=== PATIENT | female | born 1990 | race Two or more races ===

== ENCOUNTER 2021-01-29 23:52 | Emergency (ER) | payer MEDICAID, OTHER ==
[~2021-01-29] VITALS: Ht 160 cm; Wt 75.7 kg
[2021-01-30 01:51] LABS: Basophils # (auto) 0.1 10 ^3/uL (0-0.2); Basophils % (auto) 0.6 % (0.0-2.0); Eosinophils # (auto) 0.1 10 ^3/uL (0-0.8); Eosinophils % (auto) 0.7 % (0.0-7.0); Hematocrit 45.3 % (36.0-46.0); Hemoglobin 16.2 g/dL (12.2-16.2); Lymphocytes # (auto) 1.9 10 ^3/uL (0.4-5.4); Mean Corpuscular Hgb Conc. 35.7 g/dL (32.0-36.0); Mean Corpuscular Volume 92.4 fL (80.0-100.0); Monocytes # (auto) 0.5 10 ^3/uL (0-1.3); Monocytes % (auto) 5.1 % (0.0-12.0); Neutrophils % (auto) 73.6 % (37.0-80.0); Nucleated Red Blood Cells % 0.1 %; White Blood Cell 9.5 10^3/uL (4.4-10.8)
[2021-01-30 02:04] LABS: INR 0.99 (0.9-1.15); Partial Thromboplastin Time 27.8 sec (23.0-31.2)
[2021-01-30 02:16] LABS: Albumin 4.2 g/dL (3.4-5.0); BUN/Creatinine Ratio 6.2; Calcium 8.7 mg/dL (8.5-10.1)
[2021-01-30 02:18] LABS: Bilirubin, Total 0.4 mg/dL (0.2-1.0); Total Protein 8.2 g/dL (6.4-8.2)
[2021-01-30] MEDS ORDERED: IOHEXOL 300 MG/ML 100ML BOTTLE IJ ONE (03:15)
[2021-01-30] MEDS ORDERED: FAMOTIDINE (10MG/ML) 2ML VL IV ONE (04:30)
[2021-01-30] MEDS ORDERED: ONDANSETRON HCL 4 MG/2 ML VIAL IV ONE (04:30)
[2021-01-30] MEDS ORDERED: SODIUM CHLORIDE 0.9% 1,000 ML IV ONE (04:30)
[2021-01-30 06:00] VITALS: BP 133/87
[2021-01-30 06:07] LABS: Urine Bacteria FEW /hpf (None Seen); Urine Blood Negative /uL (Negative); Urine Specific Gravity 1.018 (1.001-1.035); Urine WBC 12 /hpf (0 - 5)
== END 2021-01-30 07:03 | disposition home or self-care (01) ==
LOC: ER 23:52
DX: K92.2 Gastrointestinal hemorrhage, unspecified (principal); F12.10 Cannabis abuse, uncomplicated; J45.909 Unspecified asthma, uncomplicated; Z32.02 Encounter for pregnancy test, result negative
CPT/HCPCS: 36415; 74177; 80053; 81001; 81025; 83690; 85025; 85610; 85730; 96361; 96374; 96375; 99285; J2405; J3490; J7030; Q9967

== ENCOUNTER 2024-12-16 19:36 | Inpatient (IN) | payer BC, MEDICAID ==
[~2024-12-16] VITALS: Ht 160 cm; Wt 77.9 kg
[2024-12-16] MEDS: ACETAMINOPHEN 500 MG TAB or CAP PO ONE (20:22)
[2024-12-16] MEDS: ONDANSETRON ODT 4 MG TAB PO ONE (20:22)
[2024-12-16] MEDS: hydrALAZINE HCL 10 MG TAB PO ONE (20:23)
[2024-12-16 20:28] VITALS: PULSE 75; RESP 14; O2SAT 98
--- NOTE | 2024-12-16 20:33 | DVH ---
CHEST RADIOGRAPH Indication: hi bp Technique: Single frontal view of the chest was obtained COMPARISON: None FINDINGS: Lines and Tubes: None Lungs: Clear Pleura: No effusion. No pneumothorax. Cardiomediastinal contours: Unremarkable IMPRESSION: No abnormality.
[2024-12-16 20:37] LABS: Basophils # (auto) 0 10 ^3/uL (0-0.2); Basophils % (auto) 0.6 % (0.0-2.0); Eosinophils # (auto) 0.1 10 ^3/uL (0-0.8); Eosinophils % (auto) 1.9 % (0.0-7.0); Hematocrit 40.9 % (36.0-46.0); Hemoglobin 14.1 g/dL (12.2-16.2); Lymphocytes # (auto) 1.5 10 ^3/uL (0.4-5.4); Lymphocytes % (auto) 19.1 % (10.0-50.0); Mean Corpuscular Hemoglobin 29.9 pg (28.0-32.0); Mean Corpuscular Hgb Conc. 34.6 g/dL (32.0-36.0); Mean Corpuscular Volume 86.4 fL (80.0-100.0); Monocytes # (auto) 0.4 10 ^3/uL (0-1.3); Monocytes % (auto) 4.8 % (0.0-12.0); Neutrophils # (auto) 5.7 10 ^3/uL (1.6-8.6); Neutrophils % (auto) 73.6 % (37.0-80.0); Nucleated Red Blood Cells % 0.1 %; Platelet Count (auto) 278 10^3/uL (140-450); Red Blood Cells 4.73 10^6/uL (4.0-5.20); Red Cell Distribution Width 13.1 % (11.8-14.3); White Blood Cell 7.8 10^3/uL (4.4-10.8)
--- NOTE | 2024-12-16 20:37 | ED.PDOC ---
HPI (NEURO) HPI Comments 34y F who presents to the ED for chief complaint of headache.Pt states he has been having headache and forehead numbness for the past hour. Pt states the pain is located across the R side of her forehead radiating down to the R side of her face. Pt states her mid forehead feels numb with associated bilateral eye throbbing pain and noted tearing. Pt rates the pain 8/10, with no associated exacerbating or relieving factors. Pt has noted history of prior severe headache with initial CT finding of possible aneurysm which was later ruled out with brain MRI. She was told she may have a pinched nerve in her brain which could have been the cause of her pain. Pt states surgery was recommended but pt refused. Pt otherwise has noted BP of 155/102 but otherwise has noted temp of 98.7 F, heart rate 88, rr 18 and 02 sat of 97% on room air. Pt otherwise denies any other symptoms at this time. 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 Family History Family History: Reviewed,noncontributory to illness Social History Smoker: Non-Smoker Alcohol: Heavy Drugs: Marijuana Lives In: Home Constitutional: denies: chills, diaphoresis, fatigue, fever, malaise, sweats, weakness, others EENTM: denies: blurred vision, double vision, ear bleeding, ear discharge, ear drainage, ear pain, ear ringing, eye pain, eye redness, hearing loss, mouth pain, mouth swelling, nasal discharge, nose bleeding, nose congestion, nose pain, photophobia, tearing, throat pain, throat swelling, voice changes, others Respiratory: denies: cough, hemoptysis, orthopnea, SOB at rest, shortness of b reath, SOB with excertion, stridor, wheezing, others Cardiovascular: denies: chest pain, dizzy spells, diaphoresis, Dyspnea on exertion, edema, irregular heart beat, left arm pain, lightheadedness, palpitations, PND, syncope, others Gastrointestinal: denies: abdomen distended, abdominal pain, blood streaked bowels, constipated, diarrhea, dysphagia, difficulty swallowing, hematemesis, melena, nausea, poor appetite, poor fluid intake, rectal bleeding, rectal pain, vomiting, others Genitourinary: denies: abnormal vagina bleeding, burning, dyspareunia, dysuria, flank pain, frequency, hematuria, incontinence, pain, , vagina discharge, urgency, others Neurological: reports: headache; denies: dizziness, fainting, left sided numbness, left sided weakness, numbness, paresthesia, pre-existing deficit, right sided numbness, right sided weakness, seizure, speech problems, tingling, tremors, weakness, others Musculoskeletal: denies: back pain, gout, joint pain, joint swelling, muscle pain, muscle stiffness, neck pain, others Integumetry: denies: bruises, change in color, change in hair/nails, dryness, laceration, lesions, lumps, rash, wounds, others Allergic/Immunocompromised: denies: Difficulty Healing, Frequent Infections, Hives, Itching, others Hematologic/Lymphatic: denies: anemia, blood clots, easy bleeding, easy brui sing, swollen glands, others Endocrine: denies: excessive hunger, excessive sweating, excessive thirst, ex cessive urination, flushing, intolerance to cold, intolerance to heat, unexplained weight gain, unexplained weight loss, others Psychiatric: denies: anxiety, bipolar disorder, depression, hopeless, panic disorder, schizophrenia, sleepless, suicidal, others All Other Systems: Reviewed and Negative Physical Exam General Appearance: Mild Distress HEENT: PERRL/EOMI Neck: Full Range of Motion, Non-Tender, Normal Inspection, Supple Respiratory: Lungs Clear, No Accessory Muscle Use, No Respiratory Distress, Normal Breath Sounds Cardiovascular: No Edema, No JVD, Regular Rate/Rhythm Breast Exam: Deferred Gastrointestinal: Non Tender, Soft Genitalia: Deferred Pelvic: Deferred Rectal: Deferred Extremities: Normal inspection, Normal range of motion, Non-tender, No pedal edema Neurologic: Alert (Oriented x4), 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 Was a procedure done? Was a procedure done?: No Differential Diagnosis (SZ) Seizure: CVA/TIA CVA: Electrolyte Imbalance, Encephalopathy, Hypoglycemia, Hypoxemia Headache: Migraine, Epidural Hemorrhage, Intracerebral Hemorrhage, Subarachnoid Hemorrhage, Subdural Hemorrhage, Mass Lesion, Sinusitis, Other (HTN urgency/e mergency) X-Ray, Labs, Meds, VS Vital Signs Date Time Temp Pulse Resp B/P (MAP) Pulse Ox O2 Delivery O2 Flow Rate FiO2 12/16/24 22:00 66 15 141/97 (112) 97 12/16/24 20:28 98.3 75 75 152/106 (121) 98 98.3 12/16/24 20:28 75 14 98 Room Air* 0 21 12/16/24 20:24 80 12/16/24 20:23 152/106 12/16/24 20:22 98.3 12/16/24 19:50 98.7 88 18 155/102 (119) 97 98.7 Lab Test 12/16/24 21:24 12/16/24 20:40 12/16/24 20:24 Range/Units Troponin I High Sensitivity < 3 L < 3 L </=34 ng/L Urine Color Colorless Yellow Urine Clarity Clear Clear Urine pH 6.0 5.0-9.0 Urine Specific [place] 1.005 1.001-1.035 Urine Protein Negative Negative Urine Ketones Negative Negative Urine Blood Negative Negative /uL Urine Nitrite Negative Negative Urine Bilirubin Negative Negative Urine Urobilinogen Normal Negative mg/dL Urine Leukocyte Esterase Negative Negative /uL Urine RBC 1 0 - 4 /hpf Urine Microscopic WBC < 1 0-5 /HPF Urine Squamous Epithelial Cells Few <5 /hpf Urine Bacteria None seen None Seen /hpf Urine Glucose Normal Normal mg/dL Urine Test Negative Negative White Blood Count 7.8 4.4-10.8 10^3/uL Red Blood Count 4.73 4.0-5.20 10^6/uL Hemoglobin 14.1 12.2-16.2 g/dL Hematocrit 40.9 36.0-46.0 % Mean Corpuscular Volume 86.4 80.0-100.0 fL Mean Corpuscular Hemoglobin 29.9 28.0-32.0 pg Mean Corpuscular Hemoglobin Concent 34.6 32.0-36.0 g/dL Red Cell Distribution Width 13.1 11.8-14.3 % Platelet Count 278 140-450 10^3/uL Mean Platelet Volume 8.7 6.9-10.8 fL Neutrophils (%) (Auto) 73.6 37.0-80.0 % Lymphocytes (%) (Auto) 19.1 10.0-50.0 % Monocytes (%) (Auto) 4.8 0.0-12.0 % Eosinophils (%) (Auto) 1.9 0.0-7.0 % Basophils (%) (Auto) 0.6 0.0-2.0 % Neutrophils # (Auto) 5.7 1.6-8.6 10 ^3/uL Lymphocytes # (Auto) 1.5 0.4-5.4 10 ^3/uL Monocytes # (Auto) 0.4 0-1.3 10 ^3/uL Eosinophils # (Auto) 0.1 0-0.8 10 ^3/uL Basophils # (Auto) 0 0-0.2 10 ^3/uL Nucleated Red Blood Cells 0.1 % Sodium Level 139 136-145 mmol/L Potassium Level 3.6 3.5-5.1 mmol/L Chloride Level 104 98-107 mmol/L Carbon Dioxide Level 25 20-31 mmol/L Anion Gap 10 5-15 Blood Urea Nitrogen 9 9-23 mg/dL Creatinine 0.84 0.550-1.02 mg/dL Glomerular Filtration Rate Calc 95 >90 mL/min BUN/Creatinine Ratio 10.7 10.0-20.0 Serum Glucose 109 H 74-106 mg/dL Calcium Level 9.1 8.7-10.4 mg/dL B-Type Natriuretic Peptide 4.74 0-100 pg/mL Current Medications Medications (Trade) Dose Ordered Sig/[place] Route Start Time Stop Time Status Last Admin Acetaminophen (Tylenol Tablet Or Capsule) 1,000 mg ONCE ONCE PO 12/16/24 20:15 12/16/24 20:16 DC 12/16/24 20:22 Ondansetron HCl (Zofran Po) 4 mg ONCE ONCE PO 12/16/24 20:15 12/16/24 20:16 DC 12/16/24 20:22 Hydralazine HCl (Apresoline Tablet) 10 mg ONCE ONCE PO 12/16/24 20:15 12/16/24 20:16 DC 12/16/24 20:23 [place] [id number] Ph: [phone] DIAGNOSTIC IMAGING Diagnostic Imaging Report : [id number] Signed PATIENT: PHANI NATION ACCT: [id number] UNIT: [id number] : 1990 LOC: ER ROOM / BED: / AGE / SEX: 34 / F ADM STATUS: REG ER SERVICE 00 ORDERING PHYSICIAN: KENDALL ALBERTO MD PROCEDURE(s): HWOCT - HEAD WITHOUT CONTRAST REASON: mid forehead numbness, headache, high bp ORDER NUMBER(s): [id number], ACCESSION NUMBER(s): [id number] CT HEAD WITHOUT CONTRAST INDICATION: mid forehead numbness, headache, high bp COMPARISON: None TECHNIQUE: CT of the head without intravenous contrast. RADIATION DOSE: CTDIvol: 51.74 mGy, DLP: 829.58 mGy*cm FINDINGS: There is no evidence of intracranial hemorrhage, infarct, extra-axial collection, mass effect, midline shift, herniation or hydrocephalus. The ventricles, sulci and cisterns are normal. The salas-white differentiation is normal. Visualized paranasal sinuses and mastoid air cells are unremarkable. Soft tissues and osseous structures are unremarkable. IMPRESSION: No intracranial abnormality identified. ATED BY: DONALD GOODMAN MD DICTATED DATE/TIME: 12/16/242039 SIGNED BY: DONALD GOODMAN MD SIGNED DATE/TIME: 12/16/242039 CC: [place] [id number] Ph: [phone] DIAGNOSTIC IMAGING Diagnostic Imaging Report : [id number] Signed PATIENT: PHANI NATION ACCT: [id number] UNIT: [id number] : 1990 LOC: ER ROOM / BED: / AGE / SEX: 34 / F ADM STATUS: REG ER SERVICE 00 ORDERING PHYSICIAN: KENDALL ALBERTO MD PROCEDURE(s): CXRP - CHEST PORTABLE REASON: hi bp ORDER NUMBER(s): [id number], ACCESSION NUMBER(s): [id number] CHEST RADIOGRAPH Indication: hi bp Technique: Single frontal view of the chest was obtained COMPARISON: None FINDINGS: Lines and Tubes: None Lungs: Clear Pleura: No effusion. No pneumothorax. Cardiomediastinal contours: Unremarkable IMPRESSION: No abnormality. ATED BY: DONALD GOODMAN MD DICTATED DATE/TIME: 12/16/242030 SIGNED BY: DONALD GOODMAN MD SIGNED DATE/TIME: 12/16/242030 CC: X-Ray, Labs, Meds, VS Comment 34-year-old female with history of asthma and previous finding of a brain abnormality on imaging complaining of headache, forehead numbness and found to have elevated blood pressure Vitals remarkable for blood pressure 155/102 Exam remarkable for localized diminished light touch sensation in the mid forehead area Rhythm strip independently interpreted by me: Sinus rhythm, rate 80, no ectopy. CT head unremarkable CBC, metabolic panel, BNP and troponin unremarkable Patient treated with the following any ED: Tylenol 1 g p.o., hydralazine 10 mg p.o., Zofran ODT 4 mg p.o. On re-evaluation, patient states symptoms have somewhat improved. BP is 141/97, and other vitals are stable. She is still reporting diminished light touch sensation in the mid forehead area. Plan is to admit the patient for blood pressure control, brain MRI and Neurology evaluation. Time of 1ST Reevaluation: 21:05 Reevaluation 1ST: Unchanged Time of 2ND Reevaluation: 22:21 Reevaluation 2ND: Improved Patient Education/Counseling: Diagnosis, Treatment Family Education/Counseling: Diagnosis, Treatment Departure 1 Departure Time of Disposition: 22:21 Impression: Primary Impression: Hypertensive emergency Additional Impressions: Vascular headache Facial numbness Disposition: ADMITTED INPATIENT Admit to: Tele Condition: Guarded e-Prescriptions No Active Prescriptions or Reported Meds Critical Care Note Critical Care Time?: No Stability Stability form required: No Heart Score Heart Score: Heart Score Response (Comments) Value History N/A 0 EKG N/A 0 Age N/A 0 Risk Factors N/A 0 Troponin N/A 0 Total 0 I personally scribed for KENDALL ALBERTO MD ([email or web address]) on 12/16/24 at 20:37. Electronically submitted by [facility] Bourgeois ([facility] I personally scribed for KENDALL ALBERTO MD ([email or web address]) on 12/16/24 at 21:19. Electronically submitted by Kiki Bourgeois ([facility]). KENDALL ALBERTO MD Dec 16, 2024 20:37
--- NOTE | 2024-12-16 20:42 | DVH ---
CT HEAD WITHOUT CONTRAST INDICATION: mid forehead numbness, headache, high bp COMPARISON: None TECHNIQUE: CT of the head without intravenous contrast. RADIATION DOSE: CTDIvol: 51.74 mGy, DLP: 829.58 mGy*cm FINDINGS: There is no evidence of intracranial hemorrhage, infarct, extra-axial collection, mass effect, midlin e shift, herniation or hydrocephalus. The ventricles, sulci and cisterns are normal. The salas-white d ifferentiation is normal. Visualized paranasal sinuses and mastoid air cells are unremarkable. Soft t issues and osseous structures are unremarkable. IMPRESSION: No intracranial abnormality identified.
[2024-12-16 20:46] LABS: Anion Gap 10 (5-15); Carbon Dioxide 25 mmol/L (20-31); Chloride 104 mmol/L (98-107); Potassium 3.6 mmol/L (3.5-5.1); Sodium 139 mmol/L (136-145)
[2024-12-16 20:47] LABS: Calcium 9.1 mg/dL (8.7-10.4)
[2024-12-16 20:52] LABS: BUN/Creatinine Ratio 10.7 (10.0-20.0)
[2024-12-16 20:55] LABS: Blood Urea Nitrogen 9 mg/dL (9-23); Glucose 109 mg/dL (74-106)
[2024-12-16 21:00] LABS: Urine Bacteria None Seen /hpf (None Seen)
[2024-12-16 21:07] LABS: Urine Blood Negative /uL (Negative); Urine Clarity Clear (Clear); Urine Color Colorless (Yellow); Urine Protein, UAD Negative (Negative); Urine Specific Gravity 1.005 (1.001-1.035); Urine Squamous Epithelial Cell FEW /hpf (<5); Urine Urobilinogen Normal (Negative); Urine WBC < 1 /HPF (0-5)
[2024-12-16] MEDS ORDERED: LORazepam 0.5 MG TAB PO PRN (22:15)
[2024-12-16] MEDS ORDERED: MAALOX PLUS or MAALOX 30 ML PO PRN (22:15)
[2024-12-16] MEDS ORDERED: HYDROcodone-ACET 5/325MG TAB PO PRN (22:15)
[2024-12-16] MEDS ORDERED: ONDANSETRON HCL 4 MG/2 ML VIAL IV PRN (22:15)
[2024-12-16] MEDS ORDERED: DOCUSATE SOD 100 MG CAP PO PRN (22:15)
[2024-12-16] MEDS ORDERED: hydrALAZINE HCL 10 MG TAB PO PRN (22:15)
[2024-12-16] MEDS ORDERED: TEMAZEPAM 15 MG CAP PO PRN (22:15)
--- NOTE | 2024-12-16 22:51 | DVHHP2 ---
History of Present Illness Reason for Visit: headaches htn History of Present Illness 34-year-old female past medical history of asthma comes into the ED with a complaint of the headache patient has been having headache with facial pain and numbness for the past hour states the pain goes across the right side of the forehead and radiates down to the right side of the face patient on initial evaluation had blood pressure as high as 155/1 0s afebrile with no acute signs of infection or patient on a continued evaluation vitals appeared to be within normal limits patient was told that she has a pinched nerve in her brain and was initially transferred to [place] sometime ago where surgery was recommended but patient did refused at that time to have surgical evaluation remaining vitals remained stable patient was suggested for admission for further evaluation Cardiovascular: HTN Review of Systems Review of Systems Constitutional: denies: chills, diaphoresis, fatigue, fever, malaise, sweats, weakness, others EENTM: denies: blurred vision, double vision, ear bleeding, ear discharge, ear drainage, ear pain, ear ringing, eye pain, eye redness, hearing loss, mouth pain, mouth swelling, nasal discharge, nose bleeding, nose congestion, nose pain, photophobia, tearing, throat pain, throat swelling, voice changes, others Respiratory: denies: cough, hemoptysis, orthopnea, SOB at rest, shortness of breath, SOB with excertion, stridor, wheezing, others Cardiovascular: denies: chest pain, dizzy spells, diaphoresis, Dyspnea on exertion, edema, irregular heart beat, left arm pain, lightheadedness, palpitations, PND, syncope, others Gastrointestinal: denies: abdomen distended, abdominal pain, blood streaked bowels, constipated, diarrhea, dysphagia, difficulty swallowing, hematemesis, melena, nausea, poor appetite, poor fluid intake, rectal bleeding, rectal pain, vomiting, others Genitourinary: denies: abnormal vagina bleeding, burning, dyspareunia, dysuria, flank pain, frequency, hematuria, incontinence, pain, , vagina discharge, urgency, others Neurological: reports: headache; denies: dizziness, fainting, left sided numbness, left sided weakness, numbness, paresthesia, pre-existing deficit, right sided numbness, right sided weakness, seizure, speech problems, tingling, tremors, weakness, others Musculoskeletal: denies: back pain, gout, joint pain, joint swelling, muscle pain, muscle stiffness, neck pain, others Integumetry: denies: bruises, change in color, change in hair/nails, dryness, laceration, lesions, lumps, rash, wounds, others Allergic/Immunocompromised: denies: Difficulty Healing, Frequent Infections, Hives, Itching, others Hematologic/Lymphatic: denies: anemia, blood clots, easy bleeding, easy bruising, swollen glands, others Endocrine: denies: excessive hunger, excessive sweating, excessive thirst, excessive urination, flushing, intolerance to cold, intolerance to heat, unexplained weight gain, unexplained weight loss, others Psychiatric: denies: anxiety, bipolar disorder, depression, hopeless, panic disorder, schizophrenia, sleepless, suicidal, others All Other Systems: Reviewed and Negative Allergies: Coded Allergies: NO KNOWN ALLERGIES (Unverified , 12/16/24) Exam Vital Signs Vital Signs Date Time Temp Pulse Resp B/P (MAP) Pulse Ox O2 Delivery O2 Flow Rate FiO2 12/16/24 20:28 98.3 75 75 152/106 (121) 98 98.3 12/16/24 20:28 Room Air* 0 21 General Appearance: Alert, Oriented X3 HEENT: Atraumatic, EOMI Respiratory: Clear to auscultation, Normal air movement Cardiovascular: Regular rate, Normal S1, Normal S2 Abdominal: Normal bowel sounds, Soft Extremities: No clubbing, No cyanosis Skin: No rashes, No breakdown Neuro: Normal speech Psych/Mental Status: Mood NL Labs/Xrays Labs Test 12/16/24 21:24 12/16/24 20:40 12/16/24 20:24 Range/Units Troponin I High Sensitivity < 3 L </=34 ng/L Urine Color Colorless Yellow Urine Clarity Clear Clear Urine pH 6.0 5.0-9.0 Urine Specific [place] 1.005 1.001-1.035 Urine Protein Negative Negative Urine Ketones Negative Negative Urine Blood Negative Negative /uL Urine Nitrite Negative Negative Urine Bilirubin Negative Negative Urine Urobilinogen Normal Negative mg/dL Urine Leukocyte Esterase Negative Negative /uL Urine RBC 1 0 - 4 /hpf Urine Microscopic WBC < 1 0-5 /HPF Urine Squamous Epithelial Cells Few <5 /hpf Urine Bacteria None seen None Seen /hpf Urine Glucose Normal Normal mg/dL Urine Test Negative Negative White Blood Count 7.8 4.4-10.8 10^3/uL Red Blood Count 4.73 4.0-5.20 10^6/uL Hemoglobin 14.1 12.2-16.2 g/dL Hematocrit 40.9 36.0-46.0 % Mean Corpuscular Volume 86.4 80.0-100.0 fL Mean Corpuscular Hemoglobin 29.9 28.0-32.0 pg Mean Corpuscular Hemoglobin Concent 34.6 32.0-36.0 g/dL Red Cell Distribution Width 13.1 11.8-14.3 % Platelet Count 278 140-450 10^3/uL Mean Platelet Volume 8.7 6.9-10.8 fL Neutrophils (%) (Auto) 73.6 37.0-80.0 % Lymphocytes (%) (Auto) 19.1 10.0-50.0 % Monocytes (%) (Auto) 4.8 0.0-12.0 % Eosinophils (%) (Auto) 1.9 0.0-7.0 % Basophils (%) (Auto) 0.6 0.0-2.0 % Neutrophils # (Auto) 5.7 1.6-8.6 10 ^3/uL Lymphocytes # (Auto) 1.5 0.4-5.4 10 ^3/uL Monocytes # (Auto) 0.4 0-1.3 10 ^3/uL Eosinophils # (Auto) 0.1 0-0.8 10 ^3/uL Basophils # (Auto) 0 0-0.2 10 ^3/uL Nucleated Red Blood Cells 0.1 % Sodium Level 139 136-145 mmol/L Potassium Level 3.6 3.5-5.1 mmol/L Chloride Level 104 98-107 mmol/L Carbon Dioxide Level 25 20-31 mmol/L Anion Gap 10 5-15 Blood Urea Nitrogen 9 9-23 mg/dL Creatinine 0.84 0.550-1.02 mg/dL Glomerular Filtration Rate Calc 95 >90 mL/min BUN/Creatinine Ratio 10.7 10.0-20.0 Serum Glucose 109 H 74-106 mg/dL Calcium Level 9.1 8.7-10.4 mg/dL B-Type Natriuretic Peptide 4.74 0-100 pg/mL Assessment/Plan Assessment/Plan admit to [facility] Hypertensive urgency With symptomatic headache P.r.n. medication for the management of blood pressure hydralazine 10 mg p.r.n. q.6 pressures greater than 150 systolic Patient with a history of nerve impingement in the brain Neuro evaluation possible MRI required for change in prognosis Lab evaluation appears unremarkable CT exam of the head appears unremarkable We will admit for further evaluation and management as per ED recommendation Plan discussed with: Patient My Orders Orders - NOLBERTO CLARK MD Procedure Category Date Status Time Admit ADMIT 12/16/24 Transmitted 22:13 Code Status CODE 12/16/24 Transmitted 22:13 Vital Signs JAX 12/16/24 In Process 22:13 Review Orders With JAX 12/16/24 In Process Adm.Md 22:13 Regular Diet DIET 12/17/24 Transmitted Breakfast Lorazepam Tablet PHA 12/16/24 In Process (Ativan Tablet) 22:15 Alum & Mag PHA 12/16/24 In Process Hydrox-Simethicone 22:15 Docusate Sodium PHA 12/16/24 In Process Capsule (Colace 22:15 Acetaminophen Tablet PHA 12/16/24 In Process (Tylenol Tablet) 22:15 Temazepam (Restoril) PHA 12/16/24 In Process 22:15 Notify Md Of Changes JAX 12/16/24 In Process From Base 22:13 Advance Directive JAX 12/16/24 In Process 22:13 Patient Condition ORDERS 12/16/24 Transmitted 22:13 Allergies JAX 12/16/24 In Process 22:13 Hydrocodone-Acet PHA 12/16/24 In Process 5/325mg Tab ([place] 22:15 Ondansetron Hcl PHA 12/16/24 In Process (Zofran) 22:15 Notify Md Of Changes JAX 12/16/24 In Process From Base 22:13 * Neurology Consult CONS 12/16/24 Transmitted 22:13 Hydralazine Hcl PHA 12/16/24 In Process Tablet (Apresoline 22:15 Date of Service: Dec 16, 2024 Billing Provider: NOLBERTO CLARK MD Common Visit Codes: [id number] INP/OBS CARE (HIGH) NOLBERTO CLARK MD Dec 16, 2024 22:51
[2024-12-17] VITALS (8 sets, daily range): BP systolic 126–143; BP diastolic 79–98; PULSE 63–73; RESP 16–98; TEMP 36.7; O2SAT 97–99
[2024-12-17] MEDS: ACETAMINOPHEN 325 MG TAB PO PRN (01:55)
--- NOTE | 2024-12-17 14:42 | DVH ---
EXAMINATION: MRI BRAIN HEAD WO CONTRAST INDICATION: Trigemnal Neuralgia COMPARISON: CT head 12/16/2024 TECHNIQUE: Multiplanar, multisequence magnetic resonance imaging of the brain was performed without t he use of intravenous contrast. FINDINGS: There is no restricted diffusion. The salas and white matter signal is appropriate. There is no eviden ce of hemorrhage, mass, mass effect or midline shift. There is no hydrocephalus or extra-axial fluid collection. The visualized intracranial vasculature demonstrates appropriate flow-voids. There is no gross evidence of an IAC or CP angle lesion. The sagittal midline structures appear unremarkable. The craniocervical junction is within normal limits. The calvarium demonstrates normal marrow signal. Th ere is mild mucosal thickening in the maxillary sinuses. There is a retention cysts in the left maxil rory sinus. Mastoid air cells are clear. IMPRESSION: 1. There is no acute intracranial process. HS:Y
--- NOTE | 2024-12-17 15:25 | DVH ---
PROCEDURE: MRI MRI FACE W OUT CONTRAST INDICATION: Trigemnal Neuralgia Exam Date: 12/17/2024 01:55 PM COMPARISON: None TECHNIQUE: MRI neck without and with intravenous contrast. FINDINGS: There is no evidence of neck mass lesion, pathologically enlarged lymph nodes, or fluid collection. The fat planes of the neck appear intact. The visualized airway and larynx are unremarkable. The sk ull base and infratemporal fossae are unremarkable. The paranasal sinuses and mastoid air cells are unremarkable. The visualized portions of the brain are unremarkable. IMPRESSION: No evidence of neck mass, pathologically enlarged lymph nodes or fluid collection.
[2024-12-17] MEDS: LOSARTAN POTASSIUM 25 MG TAB PO ONE (15:26)
[2024-12-17] MEDS ORDERED: LOSA-534 PO (16:42)
--- NOTE | 2024-12-17 16:45 | DVHDS2 ---
Discharge Summary Date of Admission Dec 16, 2024 at 22:13 Date of Discharge: Dec 17, 2024 Admitting Diagnosis Uncontrolled HTN Labs/Diagnostic Data: Laboratory Results Test 12/17/24 05:16 12/16/24 21:24 12/16/24 20:40 12/16/24 20:24 POC Glucose 125 mg/dl (70-106) Troponin I High Sensitivity < 3 ng/L (</=34) Urine Color Colorless (Yellow) Urine Clarity Clear (Clear) Urine pH 6.0 (5.0-9.0) Urine Specific [place] 1.005 (1.001-1.035) Urine Protein Negative (Negative) Urine Ketones Negative (Negative) Urine Blood Negative /uL (Negative) Urine Nitrite Negative (Negative) Urine Bilirubin Negative (Negative) Urine Urobilinogen Normal mg/dL (Negative) Urine Leukocyte Esterase Negative /uL (Negative) Urine RBC 1 /hpf (0 - 4) Urine Microscopic WBC < 1 /HPF (0-5) Urine Squamous Epithelial Cells Few /hpf (<5) Urine Bacteria None seen /hpf (None Seen) Urine Glucose Normal mg/dL (Normal) Urine Test Negative (Negative) White Blood Count 7.8 10^3/uL (4.4-10.8) Red Blood Count 4.73 10^6/uL (4.0-5.20) Hemoglobin 14.1 g/dL (12.2-16.2) Hematocrit 40.9 % (36.0-46.0) Mean Corpuscular Volume 86.4 fL (80.0-100.0) Mean Corpuscular Hemoglobin 29.9 pg (28.0-32.0) Mean Corpuscular Hemoglobin Concent 34.6 g/dL (32.0-36.0) Red Cell Distribution Width 13.1 % (11.8-14.3) Platelet Count 278 10^3/uL (140-450) Mean Platelet Volume 8.7 fL (6.9-10.8) Neutrophils (%) (Auto) 73.6 % (37.0-80.0) Lymphocytes (%) (Auto) 19.1 % (10.0-50.0) Monocytes (%) (Auto) 4.8 % (0.0-12.0) Eosinophils (%) (Auto) 1.9 % (0.0-7.0) Basophils (%) (Auto) 0.6 % (0.0-2.0) Neutrophils # (Auto) 5.7 10 ^3/uL (1.6-8.6) Lymphocytes # (Auto) 1.5 10 ^3/uL (0.4-5.4) Monocytes # (Auto) 0.4 10 ^3/uL (0-1.3) Eosinophils # (Auto) 0.1 10 ^3/uL (0-0.8) Basophils # (Auto) 0 10 ^3/uL (0-0.2) Nucleated Red Blood Cells 0.1 % Sodium Level 139 mmol/L (136-145) Potassium Level 3.6 mmol/L (3.5-5.1) Chloride Level 104 mmol/L (98-107) Carbon Dioxide Level 25 mmol/L (20-31) Anion Gap 10 (5-15) Blood Urea Nitrogen 9 mg/dL (9-23) Creatinine 0.84 mg/dL (0.550-1.02) Glomerular Filtration Rate Calc 95 mL/min (>90) BUN/Creatinine Ratio 10.7 (10.0-20.0) Serum Glucose 109 mg/dL (74-106) Calcium Level 9.1 mg/dL (8.7-10.4) B-Type Natriuretic Peptide 4.74 pg/mL (0-100) Other Laboratory Tests 12/16/24 20:24 Brief Hx & Hospital Course: 34 year-old F who presented with headaches and "funny feeling" reports she had Trigeminal Neuralgia in the past. MRI was done which was negative. New onset HTN, will start Losartan. See me in clinic on Tuesday afternoon. Operations or Procedures EXAMINATION: MRI BRAIN HEAD WO CONTRAST INDICATION: Trigemnal Neuralgia COMPARISON: CT head 12/16/2024 TECHNIQUE: Multiplanar, multisequence magnetic resonance imaging of the brain was performed without the use of intravenous contrast. FINDINGS: There is no restricted diffusion. The salas and white matter signal is appropriate. There is no evidence of hemorrhage, mass, mass effect or midline shift. There is no hydrocephalus or extra-axial fluid collection. The visualized intracranial vasculature demonstrates appropriate flow-voids. There is no gross evidence of an IAC or CP angle lesion. The sagittal midline structures appear unremarkable. The craniocervical junction is within normal limits. The calvarium demonstrates normal marrow signal. There is mild mucosal thickening in the maxillary sinuses. There is a retention cysts in the left maxillary sinus. Mastoid air cells are clear. IMPRESSION: 1. There is no acute intracranial process. Condition at Discharge: Stable Final Diagnosis/Problems List Uncontrolled HTN Discharge Disposition: Home Discharge Instruct/Medications Diet: Regular Activity: Light activity Follow Up/Referral: Dr. Castellano Medications: Losartan Discharge Statement: "Patient was advised to return to the ER or call 911 if any headaches, dizziness, shortness of breath, chest pain, abdominal pain, bleeding, fevers, or worsening of medical condition. Patient was counseled about treatment plan, medications, possible side effects, patientverbalized understanding. All questions were answered to the best of my ability. This discharge took greater then 30 minutes in planning, reviewing documentation, counseling the patient, and discussing with other team members." ASSESSMENT ASSESSMENT Assessment Date of Service: Dec 17, 2024 Billing Provider: QUINTON CASTELLANO MD Common Visit Codes: 42396-PLC/OBS DISCH DAY >30min QUINTON CASTELLANO MD Dec 17, 2024 16:45
[2024-12-17 17:22] LABS: Urine Bacteria None Seen /hpf (None Seen)
[2024-12-17 17:28] LABS: Urine Blood Negative /uL (Negative); Urine Clarity Turbid (Clear); Urine Color Light-Yellow (Yellow); Urine Protein, UAD Negative (Negative); Urine Specific Gravity 1.018 (1.001-1.035); Urine Squamous Epithelial Cell MOD /hpf (<5); Urine Urobilinogen Normal (Negative); Urine WBC 2 /HPF (0-5); Urine pH 6.5 (5.0-9.0)
[2024-12-17 17:31] LABS: INR 0.96 (0.9-1.15); Partial Thromboplastin Time 29.3 SEC (24.5-34.5); Prothrombin Time 10.2 sec (9.3-11.8)
[2024-12-17 17:34] LABS: Alanine Aminotransferase 33 U/L (7-40); Alkaline Phosphatase 70 U/L (46-116); Anion Gap 9 (5-15); Aspartate Aminotransferase 37 U/L (13-40); BUN/Creatinine Ratio 8.7 (10.0-20.0); Bilirubin, Total 0.3 mg/dL (0.2-1.0); Calcium 9.5 mg/dL (8.7-10.4); Carbon Dioxide 23 mmol/L (20-31); Chloride 106 mmol/L (98-107); Cholesterol 186 mg/dL (< 200); HDL Cholesterol 40 mg/dL (40-59); Potassium 3.6 mmol/L (3.5-5.1); Sodium 138 mmol/L (136-145); Total Protein 7.8 g/dL (5.7-8.2)
[2024-12-17 17:36] LABS: Albumin 4.9 g/dL (3.2-4.8); Blood Urea Nitrogen 8 mg/dL (9-23); Free T4 (Free Thyroxine) 1.15 ng/dL (0.89-1.76); Glucose 126 mg/dL (74-106); Triglycerides 420 mg/dL (< 150)
[2024-12-18] MEDS ORDERED: LOSARTAN POTASSIUM 50 MG TAB PO SCH (10:00)
[2024-12-19 12:12] LABS: Hepatitis B Core Total AB Negative (Negative)
[2024-12-19 12:33] LABS: Hepatitis A Total Antibody Positive (Negative); Hepatitis B Surface Antibody Negative (Negative); Hepatitis B Surface Antigen Negative (Negative)
[2024-12-19 12:34] LABS: Hepatitis C Antibody Negative (Negative)
== END 2024-12-17 18:50 | disposition home or self-care (01) | DRG 305 ==
LOC: EEVIPCON 19:36 → ER 19:36 → OVERFLOW 22:13 → WEST WING 12-17 01:01
PROVIDERS: ADMIT Internal Medicine; ATTEND Internal Medicine
DX: I16.1 Hypertensive emergency (principal); J45.909 Unspecified asthma, uncomplicated; I10 Essential (primary) hypertension; M79.2 Neuralgia and neuritis, unspecified; G44.1 Vascular headache, not elsewhere classified
CPT/HCPCS: 36415; 70450; 70540; 70551; 71045; 80048; 80053; 80061; 81001; 81025; 82306; 82607; 82962; 83036; 83880; 84439; 84443; 84484; 85025; 85610; 85730; 86704; 86706; 86708; 86803; 87340; G0378; Q0162

== ENCOUNTER 2025-02-09 04:50 | Emergency (ER) | payer BC, MEDICAID ==
[~2025-02-09] VITALS: Ht 160 cm; Wt 74.0 kg
[~2025-02-09 04:50] MED LIST: LOSA-534 PO
[2025-02-09] MEDS ORDERED: CLIN1CAP70 PO (05:05)
--- NOTE | 2025-02-09 05:07 | ED.PDOC ---
History of Present Illness HPI Comments 35 year old female presents to the ED for the c/c of Tooth pain w/ associated Right sided Facial Swelling. Pt states that her symptoms started 2x days ago, and have progressively worsened, leaving no alleviating factors. Pt denies any CRUZ, ABD pain, or any other associated symptoms, modifiers, recent injuries or sick contacts present at this time. Chief Complaint: Tooth Pain Time Seen by MD: 05:04 Primary Care Provider: MAE Reviewed Notes: Nurses Notes, Medications, Allergies Allergies: Coded Allergies: NO KNOWN ALLERGIES (Unverified , 12/16/24) Home Meds Active Scripts Clindamycin Hcl (Clindamycin Hcl) 300 Mg Cap, 1 CAP PO TID for 7 Days, #21 CAP Prov:MADDIE HILTON MD 02/09/25 Losartan Potassium (Losartan Potassium) 50 Mg Tab, 50 MG PO DAILY for 30 Days, #30 TAB Prov:QUINTON CASTELLANO MD 12/17/24 Information Source: Patient, Spouse Mode of Arrival: Ambulatory Severity: Moderate Timing: Days Duration: Intermittent, Days Prehospital treatment: None Past Medical History PAST MEDICAL HISTORY: Asthma Surgical History: Denies all surgeries 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 Family History Family History: Reviewed,noncontributory to illness Social History Smoker: Non-Smoker Alcohol: Heavy Drugs: Marijuana Lives In: Home Constitutional: denies: chills, diaphoresis, fatigue, fever, malaise, sweats, weakness, others EENTM: reports: mouth pain; denies: blurred vision, double vision, ear bleeding, ear discharge, ear drainage, ear pain, ear ringing, eye pain, eye redness, hearing loss, mouth swelling, nasal discharge, nose bleeding, nose congestion, nose pain, photophobia, tearing, throat pain, throat swelling, voice changes, others Respiratory: denies: cough, hemoptysis, orthopnea, SOB at rest, shortness of breath, SOB with excertion, stridor, wheezing, others Cardiovascular: denies: chest pain, dizzy spells, diaphoresis, Dyspnea on exertion, edema, irregular heart beat, left arm pain, lightheadedness, palpitations, PND, syncope, others Gastrointestinal: denies: abdomen distended, abdominal pain, blood streaked bowels, constipated, diarrhea, dysphagia, difficulty swallowing, hematemesis, melena, nausea, poor appetite, poor fluid intake, rectal bleeding, rectal pain, vomiting, others Genitourinary: denies: abnormal vagina bleeding, burning, dyspareunia, dysuria, flank pain, frequency, hematuria, incontinence, pain, , vagina discharge, urgency, others Neurological: denies: dizziness, fainting, headache, left sided numbness, left sided weakness, numbness, paresthesia, pre-existing deficit, right sided numbness, right sided weakness, seizure, speech problems, tingling, tremors, weakness, others Musculoskeletal: denies: back pain, gout, joint pain, joint swelling, muscle pain, muscle stiffness, neck pain, others Integumetry: denies: bruises, change in color, change in hair/nails, dryness, laceration, lesions, lumps, rash, wounds, others Allergic/Immunocompromised: denies: Difficulty Healing, Frequent Infections, Hives, Itching, others Hematologic/Lymphatic: denies: anemia, blood clots, easy bleeding, easy bruising, swollen glands, others Endocrine: denies: excessive hunger, excessive sweating, excessive thirst, excessive urination, flushing, intolerance to cold, intolerance to heat, unexplained weight gain, unexplained weight loss, others Psychiatric: denies: anxiety, bipolar disorder, depression, hopeless, panic disorder, schizophrenia, sleepless, suicidal, others All Other Systems: Reviewed and Negative Physical Exam General Appearance: Mild Distress, Normal, Obese HEENT: Head (Notable swelling to the Right cheek, with notebale surrouding erythema, TTP), Normal ENT Inspection, Pharynx Normal, TMs Normal Neck: Full Range of Motion, Non-Tender, Normal, Normal Inspection Respiratory: Chest Non-Tender, Lungs Clear, No Accessory Muscle Use, No Respiratory Distress, Normal Breath Sounds Cardiovascular: No Edema, No JVD, No Murmur, No Gallop, Normal Peripheral Pulses, Regular Rate/Rhythm Breast Exam: Deferred Gastrointestinal: Non Tender, No Pulsatile Mass, Normal Bowel Sounds, Soft Genitalia: Deferred Pelvic: Deferred Rectal: Deferred Extremities: No calf tenderness, Normal capillary refill, Normal inspection, Normal range of motion, Non-tender, No pedal edema Musculoskeletal : Apperance: Normal Neurologic: Alert, No Motor Deficits, Normal Affect, Normal Mood, No Sensory Deficits Cerebellar Function: Normal Reflexes: Normal Skin: Dry, Normal Color, Warm Lymphatic: No Adenopathy Was a procedure done? Was a procedure done?: No Differential Dx Considerations may include: Differential diagnosis includes but not limited to: dental abscess, Raúl's angina, osteomyelitis, orbital cellulitis, deep tissue involvement, sepsis and others X-Ray, Labs, Meds, VS Vital Signs Date Time Temp Pulse Resp B/P (MAP) Pulse Ox O2 Delivery O2 Flow Rate FiO2 02/09/25 05:13 98.4 78 12 135/92 (106) 99 98.4 02/09/25 05:13 Room Air* 0 21 02/09/25 04:55 98.4 80 12 146/99 (115) 98 98.4 Time of 1ST Reevaluation: 05:34 Reevaluation 1ST: Unchanged Patient Education/Counseling: Diagnosis, Treatment, Need For Follow Up Family Education/Counseling: Diagnosis, Treatment, Need For Follow Up SEPSIS Sepsis Screen Date sepsis recognized/suspect: Feb 09, 2025 Time Sepsis recognized/suspect: 454 Recent Procedure: No On Antibiotic Therapy: Yes Respiratory Rate >20: No Heart Rate >90: No Temp<36 C (96.8 F) or >38.3 C: No SBP <90 or MAP <65 mmHG: No New Acute Mental Status Change: No Is the patient on CPAP, BIPAP,: No Vital Signs Date Time Temp Pulse Resp B/P (MAP) Pulse Ox O2 Delivery O2 Flow Rate FiO2 02/09/25 05:13 98.4 78 12 135/92 (106) 99 98.4 02/09/25 05:13 Room Air* 0 21 02/09/25 04:55 98.4 80 12 146/99 (115) 98 98.4 Departure 1 Departure Time of Disposition: 06:00 Impression: Primary Impression: Dental abscess Disposition: HOME / SELF CARE / HOMELESS Condition: Stable e-Prescriptions Clindamycin Hcl (Clindamycin Hcl) 300 Mg Cap 1 CAP PO TID for 7 Days, #21 CAP Prov: MADDIE HILTON MD 02/09/25 Discharged With: Self Critical Care Note Critical Care Time?: No Stability Stability form required: No Heart Score Heart Score: Heart Score Response (Comments) Value History N/A 0 EKG N/A 0 Age N/A 0 Risk Factors N/A 0 Troponin N/A 0 Total 0 I personally scribed for MADDIE HILTON MD ([email or web address]) on 02/09/25 at 05:07. Electronically submitted by Serafin Zamora ([email or web address]). MADDIE HILTON MD Feb 09, 2025 05:07
[2025-02-09 05:13] VITALS: BP 135/92; PULSE 78; RESP 12; TEMP 98.4; O2SAT 99
[2025-02-09] MEDS: IBUPROFEN 400 MG TAB PO ONE (05:16)
[2025-02-09] MEDS: PENICILLIN G BENZ 1,200,000 UNITS/2 ML SYRG IM ONE (05:16)
== END 2025-02-09 05:22 | disposition home or self-care (01) ==
LOC: EEVIPCON 04:50 → ER 04:50
DX: K04.7 Periapical abscess without sinus (principal); J45.909 Unspecified asthma, uncomplicated; Z79.899 Other long term (current) drug therapy

== ENCOUNTER 2025-03-10 09:58 | Emergency (ER) | payer BC, MEDICAID ==
[~2025-03-10] VITALS: Ht 160 cm; Wt 74.9 kg
[~2025-03-10 09:58] MED LIST changes: +CLIN1CAP70 PO
--- NOTE | 2025-03-10 10:19 | ED.PDOC ---
HPI Comments 35 y.o female with PMHx of HTN, presents to the ED for a chief complaint of left sided chest pain and nausea that started this morning at 0200 while laying in bed. Patient report a sharp pain presented spontaneously, worsens with deep inspiration and travels to her left shoulder with a pain rate of 7/10 at this time. Patient states pain intensity is intermittent, however pain itself is constant and has no alleviating factors despite taking OTC anti acids. Patient denies any SOB, vomiting, leg swelling, fever, chills. Chief Complaint: Chest Pain Time Seen by MD: 10:11 Primary Care Provider: MAE Reviewed Notes: Nurses Notes, Medications, Allergies Allergies: Coded Allergies: NO KNOWN ALLERGIES (Unverified , 12/16/24) Home Meds Active Scripts Clindamycin Hcl (Clindamycin Hcl) 300 Mg Cap, 1 CAP PO TID for 7 Days, #21 CAP Prov:MADDIE HILTON MD 02/09/25 Losartan Potassium (Losartan Potassium) 50 Mg Tab, 50 MG PO DAILY for 30 Days, #30 TAB Prov:QUINTON CASTELLANO MD 12/17/24 Information Source: Patient Mode of Arrival: Ambulatory Severity: Moderate Timing: Hours Duration: Since onset Location: Chest (L) Radiation: Shoulder (L) Quality: Sharp Onset: At Rest Cardiac Risk Factors: HTN PE Risk Factors: None History of: None Associated Signs and Symptoms: N/V Past Medical History PAST MEDICAL HISTORY: Asthma, HTN Surgical History: Denies all surgeries 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 Family History Family History: Reviewed,noncontributory to illness Social History Smoker: Non-Smoker Alcohol: Heavy Drugs: Marijuana Lives In: Home Constitutional: denies: chills, diaphoresis, fatigue, fever, malaise, sweats, weakness, others EENTM: denies: blurred vision, double vision, ear bleeding, ear discharge, ear drainage, ear pain, ear ringing, eye pain, eye redness, hearing loss, mouth pain, mouth swelling, nasal discharge, nose bleeding, nose congestion, nose pain, photophobia, tearing, throat pain, throat swelling, voice changes, others Respiratory: denies: cough, hemoptysis, orthopnea, SOB at rest, shortness of breath, SOB with excertion, stridor, wheezing, others Cardiovascular: reports: chest pain; denies: dizzy spells, diaphoresis, Dyspnea on exertion, edema, irregular heart beat, left arm pain, lightheadedness, palpitations, PND, syncope, others Gastrointestinal: reports: nausea; denies: abdomen distended, abdominal pain, blood streaked bowels, constipated, diarrhea, dysphagia, difficulty swallowing, hematemesis, melena, poor appetite, poor fluid intake, rectal bleeding, rectal pain, vomiting, others Genitourinary: denies: abnormal vagina bleeding, burning, dyspareunia, dysuria, flank pain, frequency, hematuria, incontinence, pain, , vagina discharge, urgency, others Neurological: denies: dizziness, fainting, headache, left sided numbness, left sided weakness, numbness, paresthesia, pre-existing deficit, right sided numbness, right sided weakness, seizure, speech problems, tingling, tremors, weakness, others Musculoskeletal: denies: back pain, gout, joint pain, joint swelling, muscle pain, muscle stiffness, neck pain, others Integumetry: denies: bruises, change in color, change in hair/nails, dryness, laceration, lesions, lumps, rash, wounds, others Allergic/Immunocompromised: denies: Difficulty Healing, Frequent Infections, Hives, Itching, others Hematologic/Lymphatic: denies: anemia, blood clots, easy bleeding, easy bruising, swollen glands, others Endocrine: denies: excessive hunger, excessive sweating, excessive thirst, excessive urination, flushing, intolerance to cold, intolerance to heat, unexplained weight gain, unexplained weight loss, others Psychiatric: denies: anxiety, bipolar disorder, depression, hopeless, panic disorder, schizophrenia, sleepless, suicidal, others All Other Systems: Reviewed and Negative Physical Exam General Appearance: No Apparent Distress, Normal HEENT: NOT DONE Neck: Normal Inspection Respiratory: No Accessory Muscle Use, No Respiratory Distress Cardiovascular: Normal Peripheral Pulses, Regular Rate/Rhythm Breast Exam: Deferred Gastrointestinal: NOT DONE Genitalia: Deferred Pelvic: Deferred Rectal: Deferred Extremities: No calf tenderness, Normal capillary refill, Normal inspection, Non-tender, No pedal edema Musculoskeletal : Apperance: Normal Neurologic: Alert, Normal Affect, Normal Mood Cerebellar Function: NOT DONE Reflexes: Normal Skin: Dry, Normal Color Lymphatic: NOT DONE Was a procedure done? Was a procedure done?: No CP Differential Dx Differential Diagnosis: A-fib, A-Flutter, Angina, Anxiety / Panic Attack, Heart Failure, Hyperthyroidism, Hyperventilation, Hypoxia, MAT, [place], Pulmonary Embolus, V-Fib, N/A Differential Diagnosis: Angina, Chest Wall Pain, Cholelithiasis, Costochondritis, Esophageal reflux/spasm, Gastritis, Pericarditis X-Ray, Labs, Meds, VS Vital Signs Date Time Temp Pulse Resp B/P (MAP) Pulse Ox O2 Delivery O2 Flow Rate FiO2 03/10/25 11:45 62 16 97 Room Air* 0 21 03/10/25 11:45 98.2 62 16 138/86 (103) 97 98.2 03/10/25 11:27 65 03/10/25 10:04 68 03/10/25 10:02 98.2 71 15 143/95 100 98.2 Lab Test 03/10/25 13:02 03/10/25 11:14 03/10/25 11:09 03/10/25 10:11 Range/Units D-Dimer, Quantitative Pending < 0.19 0.0-0.49 mg/L FEU Troponin I High Sensitivity Pending < 3 L < 3 L </=34 ng/L Urine Color Light-yellow Yellow Urine Clarity Clear Clear Urine pH 6.0 5.0-9.0 Urine Specific [place] 1.010 1.001-1.035 Urine Protein Negative Negative Urine Ketones Negative Negative Urine Blood Negative Negative /uL Urine Nitrite Negative Negative Urine Bilirubin Negative Negative Urine Urobilinogen Normal Negative mg/dL Urine Leukocyte Esterase Negative Negative /uL Urine RBC None seen 0 - 4 /hpf Urine Microscopic WBC < 1 0-5 /HPF Urine Squamous Epithelial Cells Few <5 /hpf Urine Bacteria None seen None Seen /hpf Urine Glucose Normal Normal mg/dL White Blood Count 6.0 4.4-10.8 10^3/uL Red Blood Count 4.60 4.0-5.20 10^6/uL Hemoglobin 14.2 12.2-16.2 g/dL Hematocrit 40.5 36.0-46.0 % Mean Corpuscular Volume 88.1 80.0-100.0 fL Mean Corpuscular Hemoglobin 30.9 28.0-32.0 pg Mean Corpuscular Hemoglobin Concent 35.1 32.0-36.0 g/dL Red Cell Distribution Width 13.3 11.8-14.3 % Platelet Count 303 140-450 10^3/uL Mean Platelet Volume 8.4 6.9-10.8 fL Neutrophils (%) (Auto) 56.4 37.0-80.0 % Lymphocytes (%) (Auto) 34.5 10.0-50.0 % Monocytes (%) (Auto) 6.3 0.0-12.0 % Eosinophils (%) (Auto) 2.1 0.0-7.0 % Basophils (%) (Auto) 0.7 0.0-2.0 % Neutrophils # (Auto) 3.4 1.6-8.6 10 ^3/uL Lymphocytes # (Auto) 2.1 0.4-5.4 10 ^3/uL Monocytes # (Auto) 0.4 0-1.3 10 ^3/uL Eosinophils # (Auto) 0.1 0-0.8 10 ^3/uL Basophils # (Auto) 0 0-0.2 10 ^3/uL Nucleated Red Blood Cells 0.0 % Prothrombin Time 10.5 9.3-11.8 sec Prothrombin Time INR 0.99 0.9-1.15 Activated Partial Thromboplast Time 27.8 24.5-34.5 SEC Sodium Level 139 136-145 mmol/L Potassium Level 3.4 L 3.5-5.1 mmol/L Chloride Level 102 98-107 mmol/L Carbon Dioxide Level 27 20-31 mmol/L Anion Gap 10 5-15 Blood Urea Nitrogen 5 L 9-23 mg/dL Creatinine 0.87 0.550-1.02 mg/dL Glomerular Filtration Rate Calc 90 >90 mL/min BUN/Creatinine Ratio 5.7 L 10.0-20.0 Serum Glucose 95 74-106 mg/dL Calcium Level 10.3 8.7-10.4 mg/dL Magnesium Level 1.7 1.6-2.6 mg/dL Total Bilirubin 0.5 0.2-1.0 mg/dL Aspartate Amino Transferase (AST) 23 13-40 U/L Alanine Aminotransferase (ALT) 39 7-40 U/L Alkaline Phosphatase 69 46-116 U/L B-Type Natriuretic Peptide 17.53 0-100 pg/mL Total Protein 7.4 5.7-8.2 g/dL Albumin 4.7 3.2-4.8 g/dL Current Medications Medications (Trade) Dose Ordered Sig/[place] Route Start Time Stop Time Status Last Admin Aspirin 162 mg ONCE ONCE PO 03/10/25 10:15 03/10/25 10:16 DC 03/10/25 10:27 X-Ray, Labs, Meds, VS Comment This pleasant but anxious appearing 35-year-old female presents secondary to epigastric/substernal chest pain that began at 2:00 a.m. when she was using her telephone. She has no other complaints she has a fever, chills, sweats, nausea or vomiting. Her physical exam was benign. Her labs here were benign. Her tropes were negative. EKG was benign. Eyes were benign. I had discussion with the patient's family. 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 She is straining to move with the patient as such, based on the histor y, physical exam and family information, she likely has a muscle strain. She denies take Tylenol and/or ibuprofen as needed for pain. I have she will also be provided with muscle relaxers. As such, the patient was discharged home. Asked to follow up with the PCP in next one two days return to the ER for new/worse/worsening symptoms. Time of 1ST Reevaluation: 11:00 Reevaluation 1ST: Unchanged Patient Education/Counseling: Diagnosis, Treatment, Prognosis Family Education/Counseling: No Family Present SEPSIS Sepsis Screen Date sepsis recognized/suspect: Mar 10, 2025 Time Sepsis recognized/suspect: 1004 Recent Procedure: No On Antibiotic Therapy: No Respiratory Rate >20: No Heart Rate >90: No Temp<36 C (96.8 F) or >38.3 C: No SBP <90 or MAP <65 mmHG: No New Acute Mental Status Change: No Is the patient on CPAP, BIPAP,: No Physician Orders Troponin-I Hs (03/10/25 13:00) Electrocardigram (03/10/25 11:00) Electrocardigram (03/10/25 13:00) D-Dimer (03/10/25 12:22) Vital Signs Date Time Temp Pulse Resp B/P (MAP) Pulse Ox O2 Delivery O2 Flow Rate FiO2 03/10/25 11:45 62 16 97 Room Air* 0 21 03/10/25 11:45 98.2 62 16 138/86 (103) 97 98.2 03/10/25 11:27 65 03/10/25 10:04 68 03/10/25 10:02 98.2 71 15 143/95 100 98.2 Laboratory Tests Test 03/10/25 10:11 White Blood Count 6.0 10^3/uL (4.4-10.8) Medications Medications Dose Ordered Sig/[place] Route Start Time Stop Time Status Last Admin Dose Admin Aspirin 162 mg ONCE ONCE PO 03/10/25 10:15 03/10/25 10:16 DC 03/10/25 10:27 Departure 1 Departure Time of Disposition: 13:20 Impression: Primary Impression: Chest pain Additional Impression: Musculoskeletal chest pain Disposition: 01 HOME / SELF CARE / HOMELESS Condition: Good Discharged With: Self Critical Care Note Critical Care Time?: No Stability Stability form required: No Heart Score Heart Score: Heart Score Response (Comments) Value History Slightly Suspicious 0 EKG Normal 0 Age <45 0 Risk Factors 1 or 2 risk factors 1 Troponin Normal limit 0 Total 1 I personally scribed for UGO SANTA MD ([email or web address]) on 03/10/25 at 10:19. Electronically submitted by Ana Nathan ([facility]). UGO SANTA MD Mar 10, 2025 10:19
[2025-03-10 10:30] LABS: Hematocrit 40.5 % (36.0-46.0); Hemoglobin 14.2 g/dL (12.2-16.2); Mean Corpuscular Hemoglobin 30.9 pg (28.0-32.0); Mean Corpuscular Volume 88.1 fL (80.0-100.0); Nucleated Red Blood Cells % 0.0 %
[2025-03-10 10:42] LABS: Alanine Aminotransferase 39 U/L (7-40); Albumin 4.7 g/dL (3.2-4.8); Alkaline Phosphatase 69 U/L (46-116); Anion Gap 10 (5-15); BUN/Creatinine Ratio 5.7 (10.0-20.0); Calcium 10.3 mg/dL (8.7-10.4); Carbon Dioxide 27 mmol/L (20-31); Chloride 102 mmol/L (98-107); Glucose 95 mg/dL (74-106); Magnesium 1.7 mg/dL (1.6-2.6); Sodium 139 mmol/L (136-145); Total Protein 7.4 g/dL (5.7-8.2)
[2025-03-10 10:43] LABS: Bilirubin, Total 0.5 mg/dL (0.2-1.0)
[2025-03-10 10:44] LABS: Blood Urea Nitrogen 5 mg/dL (9-23); Potassium 3.4 mmol/L (3.5-5.1)
[2025-03-10 11:02] LABS: INR 0.99 (0.9-1.15); Partial Thromboplastin Time 27.8 SEC (24.5-34.5); Prothrombin Time 10.5 sec (9.3-11.8)
--- NOTE | 2025-03-10 11:29 | ECG ---
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
[2025-03-10 11:43] LABS: Urine Protein, UAD Negative (Negative)
[2025-03-10 11:45] VITALS: PULSE 62; RESP 16; O2SAT 97
[2025-03-10] MEDS ORDERED: CYCL-838 PO (13:22)
[2025-03-10 13:45] VITALS: BP 128/88; PULSE 65; RESP 16; TEMP 98.2; O2SAT 97
--- NOTE | 2025-03-11 07:42 | ECG ---
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
== END 2025-03-10 13:46 | disposition home or self-care (01) ==
LOC: ER 09:58
DX: R07.89 Other chest pain (principal); I10 Essential (primary) hypertension; J45.909 Unspecified asthma, uncomplicated; Z79.899 Other long term (current) drug therapy
CPT/HCPCS: 36415; 80053; 81001; 83735; 83880; 84484; 85025; 85379; 85610; 85730; 93005